=== PATIENT | male | born 1960 | race Caucasian/White ===

== ENCOUNTER 2016-10-11 09:43 | Emergency (ER) | payer OTHER ==
--- NOTE | 2016-10-11 11:51 | DIAGNOSTIC IMAGING REPORT ---
PROCEDURE: US VENOUS - LEFT EXT INDICATION: SWELLING TECHNIQUE: Duplex sonography of the deep venous system in the left lower extremity was performed. Compression and augmentation techniques were used. COMPARISON: Lower extremity ultrasound 12/30/2010 FINDINGS: Each interrogated segment of deep vein from the common femoral vein into the calf veins demonstrates normal compressibility, augmentation and/or color Doppler flow without filling defect. There is soft-tissue edema, consistent with cellulitis. IMPRESSION: 1. No deep venous thrombosis in the left lower extremity.
--- NOTE | 2016-10-11 11:54 | DIAGNOSTIC IMAGING REPORT ---
PROCEDURE: XR ANKLE 3 OR 4 VIEWS - LEFT INDICATION: INFECTION TECHNIQUE: Four views. COMPARISON: None. FINDINGS: Osseous structures and joint spaces are normal. There is soft tissue swelling IMPRESSION: 1. Normal right ankle. Soft tissue swelling.
--- NOTE | 2016-10-11 14:18 | ED CLINICAL REPORT ---
Clinical Report - Physicians/Mid Levels [facility] [address] [place] [address] 10/11/2016 9:45 Patient: ERICA WHITLOCK Time Seen: 10:41. Arrived- By private vehicle. Historian- patient and patient's physician (Dr. Haddad). HISTORY OF PRESENT ILLNESS Chief Complaint: LOWER EXTREMITY PAIN. This started several days ago and is still present and now worse. It was abrupt in onset and has been constant. Severity is described as being moderate. It has become recently worse. Symptoms located in the area of the left foot. The patient has had redness and swelling. Patient notes an injury. Mechanism of injury- he fell while walking. (onset Friday when he stepped on a rock and twisted the ankle). REVIEW OF SYSTEMS No chills, fever, sweats, calf pain or chest pain. No cough, difficulty breathing, pedal edema, palpitations or abdominal pain. No diarrhea, nausea, vomiting or urinary problems. All systems otherwise negative, except as recorded above. PAST HISTORY Medications: Senna Oral (Tablet 8.6 mg) 2 tablets, daily. Labetalol HCl Oral (Tablet 100 mg) 1 tablet, 2x a day. HCTZ 25mg , daily. Furosemide Oral (Tablet 40 mg) 1 tablet, 1 - 2 times daily. Ferrous Sulfate Oral (Tablet 325 (65 Fe) mg) 1 tablet, 2x a day. Escitalopram Oxalate Oral (Tablet 10 mg) 1 tablet, daily. Suboxone Sublingual. B Complex Vitamins Oral. Aspirin Oral (Tablet 81 mg) 1 tablet, daily. Allergies: Latex. Morphine Sulfate. SOCIAL HISTORY Current every day light tobacco smoker (cigarette)- less than 1/2 a pack per day. Alcohol use. Patient is a recovering alcoholic. History of drug use. Is a recovering addict. FAMILY HISTORY Denies family medical history. ADDITIONAL NOTES The nursing notes have been reviewed. PHYSICAL EXAM Vital Signs: 10/11/2016 09:53 BP: 124/57. HR: 69. RR: 20. O2 saturation: 97%. Temp: 98.4 F. Pain level now: 8/10. Have been reviewed. Appearance: Alert. Eyes: Pupils equal, round and reactive to light. ENT: Pharynx normal. Neck: Neck supple. CVS: Normal heart rate and rhythm. Heart sounds normal. Respiratory: No respiratory distress. Breath sounds normal. Abdomen: Soft and nontender. No organomegaly. Back: ROM normal. Skin: Skin warm and dry. Extremities: Swelling, warmth, tenderness and erythema present in the left foot. No fluctuance. LABS, X-RAYS, AND EKG EKG: Rate: 63. Q waves in lead V1 and V2. Changes present when compared to prior EKG. (10 December 2011). The study has been independently viewed by me. Lt Ankle X-ray: Soft tissue swelling. The X-rays were independently viewed by me. Lower Extremity Sonography: Negative exam. Left lower extremity. The exam was performed by a screen making technician. The study was independently viewed by me. Laboratory Tests: CBC w Diff: (CARSON: 10/11/2016 12:00) ( MsgRcvd 10/11/2016 13:54) Final results Test Result Flag Units (Reference) WHITE BLOOD COUNT 7.6 K/uL (4.5-11.5) RED BLOOD COUNT 3.93 L M/uL (4.50-5.90) HEMOGLOBIN 11.8 L gm/dL (13.5-17.5) HEMATOCRIT 36.3 L % (41.0-53.0) MEAN CELL VOLUME 93 fL (80-100) MEAN CORPUSCULAR HGB 30 pg (26-34) MEAN CORPUSCULAR HGB CONC 32 g/dL (31-37) RED CELL DISTRIBUTION WIDTH 15.6 H % (11.6-14.8) PLATELET COUNT 298 K/uL (150-400) NEUTROPHIL % 67.8 % (50-75) EOSINOPHIL % 3.6 % (0-4) BASOPHIL % 0.9 % (0-2) POLY % 66 % (50-75) BAND % 2 % (0-8) LYMPH 18 L % (25-40) MONO 10 % (3-14) EOSINOPHIL % 4 % (0-4) BASOPHIL % 0 % (0-2) METAMYELOCYTE % 0 % (0-1) MYELOCYTE 0 % (0-1) OTHER CELL TYPE 0 POIKILOCYTOSIS 1+ ANISOCYTOSIS 2+ PT with INR: (CARSON: 10/11/2016 12:00) ( [facility] 10/11/2016 12:32) Final results Test Result Flag Units (Reference) INR 1.0 (0.8-1.2) Low Intensity Therapy: INR 1.5-2.0 PT range 18.5-23.1Mod.Intensity Therapy: INR 2.0-3.0 PT range 23.1-31.5High Intensity Therapy: INR 2.5-3.5 PT range 27.4-35.5High Intensity Therapy 2: INR 3.0-4.0 PT range 31.5-39.3 APTT 21 L SECONDS (24-34) BNP: (CARSON: 10/11/2016 12:00) ( [facility] 10/11/2016 13:17) Final results Test Result Flag Units (Reference) B-TYPE NATRIURETIC PEPTIDE 119 H pg/ml (5-100) Lactate, Serum: (CARSON: 10/11/2016 12:54) ( [facility] 10/11/2016 13:30) Final results Test Result Flag Units (Reference) LACTIC ACID 0.5 mmol/L (0.4-2.0) CMP: (CARSON: 10/11/2016 12:00) ( [facility] 10/11/2016 12:48) Final results Test Result Flag Units (Reference) GLUCOSE 109 mg/dL (70-110) BUN 15 mg/dL (7-18) CREATININE 0.7 mg/dL (0.6-1.3) Estimated GFR >60 mL/min Estimated GFR- >60 mL/min Note: Persistent reduction over 3 months in eGFR<60 mL/min/1.73 m2 defines CKD. Patients with eGFR values>=60 mL/min/1.73 m2 may also have CKD if evidence ofpersistent proteinuria. Additional information may be foundat www.kidney.org. SODIUM 136 mmol/L (136-145) POTASSIUM 4.7 mmol/L (3.5-5.1) CHLORIDE 99 mmol/L (98-107) CARBON DIOXIDE 28 mmol/L (21-32) CALCIUM 8.9 mg/dL (8.5-10.1) TOTAL PROTEIN 7.3 g/dL (6.4-8.2) ALBUMIN 3.1 L g/dL (3.3-5.0) BILIRUBIN, TOTAL 0.8 mg/dL (0.0-1.0) ALKALINE PHOSPHATASE 81 U/L (46-116) AST (SGOT) 31 U/L (15-37) ALT (SGPT) 42 U/L (12-78) CPK 259 U/L (24-260) TROPONIN I <0.05 ng/mL (0.00-1.5) TROPONIN REFERENCE RANGE:<0.1 NEGATIVE0.1-1.5 INDETERMINANT>1.5 POSITIVE . PROGRESS AND PROCEDURES Patient/family counseled. Old medical records reviewed. Disposition: Discharged. Condition: stable. CLINICAL IMPRESSION Cellulitis of the left foot. INSTRUCTIONS Use crutches until released. Elevate affected areas above chest level until better. No driving or operating machinery while taking medication. You may walk and bear weight as tolerated. Warnings: Further evaluation is necessary. GENERAL WARNINGS: Return or contact your physician immediately if your condition worsens or changes unexpectedly, if not improving as expected, or if other problems arise. Your Current Medications: CONTINUE TAKING THE FOLLOWING MEDICATIONS: Aspirin Oral : Tablet 81 mg, 1 tablet daily. B Complex Vitamins Oral. Escitalopram Oxalate Oral : Tablet 10 mg, 1 tablet daily. Ferrous Sulfate Oral : Tablet 325 (65 Fe) mg, 1 tablet 2x a day. Furosemide Oral : Tablet 40 mg, 1 tablet 1 - 2 times daily. HCTZ* : 25mg daily. Labetalol HCl Oral : Tablet 100 mg, 1 tablet 2x a day. Senna Oral : Tablet 8.6 mg, 2 tablets daily. Suboxone Sublingual. Prescription Medications: Ultram 50 mg: take 1-2 orally every 6 hours as needed for pain. Dispense ten (10). No refills. Substitution is permissible. Clindamycin 300 mg: take 1 capsule orally every 6 hours for 10 days. No refill. Understanding of the discharge instructions verbalized by patient. Follow-up with: Lázaro Haddad MD, Internal Medicine, , [facility] at [facility], [address] [place] [address] [place], [place], [phone] Follow up Friday in three days. Call for an appointment. (Electronically signed by Kendall Fernandez MD 10/15/2016 21:10)
--- NOTE | 2016-10-11 14:18 | ED ORDER SUMMARY ---
..... Patient: ERICA WHITLOCK OrderSheet [facility] VisitID: [id number] [address] [place] [address] 56y, M Registration Date/Time: 10/11/2016 ORDER SHEET Weight: 71.6 kg (stated) Allergies: Latex, Morphine Sulfate GENERAL ORDERS: US Venous Left Urgent (10:42 10/11/2016 Zoie GUTIERREZ) (Ack 10:45 LTapper) (11:15 JSimbeck R.N.) CBC w Diff Urgent (10:10/11/2016 Zoie GUTIERREZ) (Ack 10:45 LTapper) (12:14 JSimbeck R.N.) CMP Urgent (:10/11/2016 Zoie GUTIERREZ) (Ack 10:45 LTapper) (12:14 JSimbeck R.N.) PT with INR Urgent (10:10/11/2016 Zoie GUTIERREZ) (Ack 10:45 LTapper) (12:14 MARIANAimbeck R.N.) PTT Urgent (10:10/11/2016 Zoie GUTIERREZ) (Ack 10:45 LTapper) (12:14 MARIANAimbeck R.N.) Lactate, Serum Urgent (:10/11/2016 Zoie GUTIERREZ) (Ack 10:45 LTapper) (13:06 EHassan R.N.) Ankle 3 or 4V Left Urgent (11:10/11/2016 Zoie GUTIERREZ) (Ack 11:35 LTapper) (13:06 EHassan R.N.) CPK Urgent (11:10/11/2016 Zoie GUTIERREZ) (Ack 11:35 LTapper) (12:14 MARIANAimbeck R.N.) Troponin-I Urgent (11:10/11/2016 Zoie GUTIERREZ) (Ack 11:35 LTapper) (12:14 Zaydaeck R.N.) BNP Urgent (11:10/11/2016 Zoie GUTIERREZ) (Ack 11:35 LTapper) (12:14 Zaydaeck R.N.) EKG - ER Stat (11:10/11/2016 Zoie GUTIERREZ) (Ack 11:35 LTapper) (12:14 Judith Lloyd) Blood Culture (No) (N/A) Urgent (11:31 10/11/2016 Zoie GUTIERREZ) (Ack 11:35 LTapper) (12:14 Judith Lloyd) Crutches (14:03 10/11/2016 Zoie GUTIERREZ) (Cancelled: Other14:30 Zoie GUTIERREZ) MEDICATION ORDERS: IV FLUIDS: IV Saline Lock (10:42 10/11/2016 Zoie GUTIERREZ) (12:15 Judith R.NShyam) Toradol IV 30 mg (NOW) (13:10 10/11/2016 Garth Lloyd verbal order read back to Zoie GUTIERREZ) (13:15 Garth R.NShyam) ORDER SHEET NOTES: [Electronically signed by Nick Springer R.N. (14:59 10/11/2016)] [Electronically signed by Kendall Fernandez MD (21:10 10/15/2016)] [Electronically locked/signed by Nick Springer R.N. (14:59 10/11/2016)]
--- NOTE | 2016-10-11 14:18 | ED ORDER SUMMARY ---
..... Patient: ERICA WHITLOCK OrderSheet [facility] VisitID: [id number] [address] [place] [address] 56y, M Registration Date/Time: 10/11/2016 ORDER SHEET Weight: 71.6 kg (stated) Allergies: Latex, Morphine Sulfate GENERAL ORDERS: US Venous Left Urgent (10:42 10/11/2016 Zoie GUTIERREZ) (Ack 10:45 LTapper) (11:15 JSimbeck R.N.) CBC w Diff Urgent (10:10/11/2016 Zoie GUTIERREZ) (Ack 10:45 LTapper) (12:14 JSimbeck R.N.) CMP Urgent (:10/11/2016 Zoie GUTIERREZ) (Ack 10:45 LTapper) (12:14 JSimbeck R.N.) PT with INR Urgent (10:10/11/2016 Zoie GUTIERREZ) (Ack 10:45 LTapper) (12:14 MARIANAimbeck R.N.) PTT Urgent (10:10/11/2016 Zoie GUTIERREZ) (Ack 10:45 LTapper) (12:14 MARIANAimbeck R.N.) Lactate, Serum Urgent (:10/11/2016 Zoie GUTIERREZ) (Ack 10:45 LTapper) (13:06 EHassan R.N.) Ankle 3 or 4V Left Urgent (11:10/11/2016 Zoie GUTIERREZ) (Ack 11:35 LTapper) (13:06 EHassan R.N.) CPK Urgent (11:10/11/2016 Zoie GUTIERREZ) (Ack 11:35 LTapper) (12:14 MARIANAimbeck R.N.) Troponin-I Urgent (11:10/11/2016 Zoie GUTIERREZ) (Ack 11:35 LTapper) (12:14 Zaydaeck R.N.) BNP Urgent (11:10/11/2016 Zoie GUTIERREZ) (Ack 11:35 LTapper) (12:14 Zaydaeck R.N.) EKG - ER Stat (11:10/11/2016 Zoie GUTIERREZ) (Ack 11:35 LTapper) (12:14 Judith Lloyd) Blood Culture (No) (N/A) Urgent (11:31 10/11/2016 Zoie GUTIERREZ) (Ack 11:35 LTapper) (12:14 Judith Lloyd) Crutches (14:03 10/11/2016 Zoie GUTIERREZ) (Cancelled: Other14:30 Zoie GUTIERREZ) MEDICATION ORDERS: IV FLUIDS: IV Saline Lock (10:42 10/11/2016 Zoie GUTIERREZ) (12:15 Judith R.NShyam) Toradol IV 30 mg (NOW) (13:10 10/11/2016 Garth Lloyd verbal order read back to Zoie GUTIERREZ) (13:15 Garth R.NShyam) ORDER SHEET NOTES: [Electronically signed by Nick Springer R.N. (14:59 10/11/2016)] [Electronically signed by Kendall Fernandez MD (21:10 10/15/2016)] [Electronically locked/signed by Nick Springer R.N. (14:59 10/11/2016)]
--- NOTE | 2016-10-11 14:18 | ED NURSING NOTES ---
Clinical Report - Nurses [facility] [address] [place] [address] 10/11/2016 9:45 Patient: ERICA WHITLOCK TRIAGE Triage time 09:53. Acuity: LEVEL 3. Chief Complaint: LEFT LOWER EXTREMITY SWELLING and REDNESS. Location of symptoms- (onset Friday when he stepped on a rock and twisted the ankle.). 10:03 10/11/16. TIEN COMA SCORE: [place] Coma Scale: 15- eyes open spontaneously (4); best verbal response- oriented x 4 (5); best motor response- obeys commands (6). --10:09 Nick Springer R.N. 09:53 10/11/16. BP: 124/57. HR: 69. RR: 20. O2 saturation: 97% on room air. Temp: 98.4 F (oral). Pain level now: 04/03. --10:09 Nick Springer R.N. Weight: 71.6 kg stated. Height/Length: 67 inches Per Patient. BMI: 24.7. --10:02 Nick Springer R.N. Medications Aspirin Oral (Tablet 81 mg) 1 tablet, daily. --09:56 Nick Springer R.N. B Complex Vitamins Oral. --09:56 Nick Springer R.N. Suboxone Sublingual. --09:56 Nick Springer R.N. Escitalopram Oxalate Oral (Tablet 10 mg) 1 tablet, daily. --09:57 Nick Springer R.N. Ferrous Sulfate Oral (Tablet 325 (65 Fe) mg) 1 tablet, 2x a day. --09:58 Nick Springer R.N. Furosemide Oral (Tablet 40 mg) 1 tablet, 1 - 2 times daily. --09:58 Nick Springer R.N. HCTZ 25mg , daily. --09:59 Nick Springer R.N. Labetalol HCl Oral (Tablet 100 mg) 1 tablet, 2x a day. --10:00 Nick Springer R.N. Senna Oral (Tablet 8.6 mg) 2 tablets, daily. --10:00 Nick Springer R.N. Allergies Latex. Morphine Sulfate. --09:54 Nick Springer R.N. History Arrived by private vehicle. Historian: patient. 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 SOCIAL HX: Light tobacco smoker (cigarette)- less than 1/2 a pack per day. Occasional alcohol use. History of drug use. Is a recovering addict. ABUSE ASSESSMENT: No report of abuse. --10:09 Nick Springer R.N. PROBLEMS: Chronic hepatitis C. Drug Addiction. Incisional abscess. Near Syncope. Atypical Chest Pain. Cervical disc herniation. Back Pain. Hypertension. Anemia. Heart Disease. Laceration. Aortic Aneurysm. Tetanus Status. Immunizations. --10:02 Nick Springer R.N. ADDITIONAL SURGERIES: Coartation/aneurysm with multiple endograft repairs. Hernia Repair. --10:03 Nick Springer R.N. PHYSICAL ASSESSMENT late entry -10:02. To room via wheelchair. GENERAL / NEURO / PSYCH: Appears in pain. He has had weakness. CVS: Capillary refill is not greater than 2 seconds. EXTREMITIES: Limited ROM present. Left leg. Limited weight bearing secondary to pain (Erythema, pain, swelling from the toes to the mid mayo. Marked the upper limits of the erythema on the anterior leg.). SKIN: No extremity wound. --11:14 Nick Springer R.N. NURSING PROGRESS NOTES late entry -10:02. Reassurance given. Two patient identifiers checked. Call light placed in reach. Bed placed in lowest position. Brakes of bed on. Patient ready for evaluation- chart flagged. --11:14 Nick Springer R.N. 11:00. ( US at the bedside). --11:16 Nick Sprigner R.N. 12:00 10/11/2016 Site #1 started via IV in the right forearm with an 22g angiocath, with aseptic technique and good blood return; two attempts. Blood drawn: rainbow set and cultures x1. Labeled in the presence of the patient and sent to the lab. --12:15 Nick Springer R.N. 12:30 10/11/16. BP: 113/66. HR: 66. RR: 16. O2 saturation: 95% on room air. Pain level now: 02/01. --12:42 Nick Springer R.N. 13:15 10/11/2016 Toradol IVP 30 mg given over 30 second(s) via site #1. Allergies verified and confirmed 5 rights. IV patency established. IV site checked: no pain, redness, or swelling. IV flushed thoroughly pre- and post-medication administration. --13:15 Vi Schofield R.N. Left leg and left ankle elevated. Reassurance given. The patient is calm. Overall patient status is the same- he states feels the same. GENERAL / NEURO / PSYCH: The patient reports pain that is located in the left ankle and foot that is severe. Two patient identifiers checked. Call light placed in reach. Bed placed in lowest position. Brakes of bed on. --13:16 Vi Schofield R.N. 13:24 10/11/16. HR: 69. RR: 15. O2 saturation: 98% on room air. Pain level now: 05/04. --13:25 Vi Schofield R.N. DISPOSITION / DISCHARGE 14:30 10/11/2016 Site #1 removed upon discharge. Bandage applied. --14:43 Nick Springer R.N. 14:43 10/11/16. Departure time: 1435. Condition at departure: improved and stable. No learning barriers present. Discharge instructions provided and reviewed with the patient and spouse. Reviewed warnings. Reviewed medication(s). Reviewed referrals. Patient and spouse verbalized understanding. Written instructions provided in Latvian. The patient was discharged by the physician. He was discharged home and accompanied by spouse. He left the Emergency Department in a wheelchair and via private vehicle. Spouse driving. --14:44 Nick Springer R.N. 14:30 10/11/16. BP: 144/66. HR: 72. RR: 16. O2 saturation: 98% on room air. Temp: 98.2 F (oral). Pain level now: 12/02. --14:44 Nick Springer R.N. Locked/Released at 10/11/2016 14:59 by Nick Springer R.N.
--- NOTE | 2016-10-11 14:18 | ED CLINICAL REPORT ---
Clinical Report - Physicians/Mid Levels [facility] [address] [place] [address] 10/11/2016 9:45 Patient: ERICA WHITLOCK Time Seen: 10:41. Arrived- By private vehicle. Historian- patient and patient's physician (Dr. Haddad). HISTORY OF PRESENT ILLNESS Chief Complaint: LOWER EXTREMITY PAIN. This started several days ago and is still present and now worse. It was abrupt in onset and has been constant. Severity is described as being moderate. It has become recently worse. Symptoms located in the area of the left foot. The patient has had redness and swelling. Patient notes an injury. Mechanism of injury- he fell while walking. (onset Friday when he stepped on a rock and twisted the ankle). REVIEW OF SYSTEMS No chills, fever, sweats, calf pain or chest pain. No cough, difficulty breathing, pedal edema, palpitations or abdominal pain. No diarrhea, nausea, vomiting or urinary problems. All systems otherwise negative, except as recorded above. PAST HISTORY Medications: Senna Oral (Tablet 8.6 mg) 2 tablets, daily. Labetalol HCl Oral (Tablet 100 mg) 1 tablet, 2x a day. HCTZ 25mg , daily. Furosemide Oral (Tablet 40 mg) 1 tablet, 1 - 2 times daily. Ferrous Sulfate Oral (Tablet 325 (65 Fe) mg) 1 tablet, 2x a day. Escitalopram Oxalate Oral (Tablet 10 mg) 1 tablet, daily. Suboxone Sublingual. B Complex Vitamins Oral. Aspirin Oral (Tablet 81 mg) 1 tablet, daily. Allergies: Latex. Morphine Sulfate. SOCIAL HISTORY Current every day light tobacco smoker (cigarette)- less than 1/2 a pack per day. Alcohol use. Patient is a recovering alcoholic. History of drug use. Is a recovering addict. FAMILY HISTORY Denies family medical history. ADDITIONAL NOTES The nursing notes have been reviewed. PHYSICAL EXAM Vital Signs: 10/11/2016 09:53 BP: 124/57. HR: 69. RR: 20. O2 saturation: 97%. Temp: 98.4 F. Pain level now: 8/10. Have been reviewed. Appearance: Alert. Eyes: Pupils equal, round and reactive to light. ENT: Pharynx normal. Neck: Neck supple. CVS: Normal heart rate and rhythm. Heart sounds normal. Respiratory: No respiratory distress. Breath sounds normal. Abdomen: Soft and nontender. No organomegaly. Back: ROM normal. Skin: Skin warm and dry. Extremities: Swelling, warmth, tenderness and erythema present in the left foot. No fluctuance. LABS, X-RAYS, AND EKG EKG: Rate: 63. Q waves in lead V1 and V2. Changes present when compared to prior EKG. (10 December 2011). The study has been independently viewed by me. Lt Ankle X-ray: Soft tissue swelling. The X-rays were independently viewed by me. Lower Extremity Sonography: Negative exam. Left lower extremity. The exam was performed by a technical maintenance technician. The study was independently viewed by me. Laboratory Tests: CBC w Diff: (CARSON: 10/11/2016 12:00) ( MsgRcvd 10/11/2016 13:54) Final results Test Result Flag Units (Reference) WHITE BLOOD COUNT 7.6 K/uL (4.5-11.5) RED BLOOD COUNT 3.93 L M/uL (4.50-5.90) HEMOGLOBIN 11.8 L gm/dL (13.5-17.5) HEMATOCRIT 36.3 L % (41.0-53.0) MEAN CELL VOLUME 93 fL (80-100) MEAN CORPUSCULAR HGB 30 pg (26-34) MEAN CORPUSCULAR HGB CONC 32 g/dL (31-37) RED CELL DISTRIBUTION WIDTH 15.6 H % (11.6-14.8) PLATELET COUNT 298 K/uL (150-400) NEUTROPHIL % 67.8 % (50-75) EOSINOPHIL % 3.6 % (0-4) BASOPHIL % 0.9 % (0-2) POLY % 66 % (50-75) BAND % 2 % (0-8) LYMPH 18 L % (25-40) MONO 10 % (3-14) EOSINOPHIL % 4 % (0-4) BASOPHIL % 0 % (0-2) METAMYELOCYTE % 0 % (0-1) MYELOCYTE 0 % (0-1) OTHER CELL TYPE 0 POIKILOCYTOSIS 1+ ANISOCYTOSIS 2+ PT with INR: (CARSON: 10/11/2016 12:00) ( [facility] 10/11/2016 12:32) Final results Test Result Flag Units (Reference) INR 1.0 (0.8-1.2) Low Intensity Therapy: INR 1.5-2.0 PT range 18.5-23.1Mod.Intensity Therapy: INR 2.0-3.0 PT range 23.1-31.5High Intensity Therapy: INR 2.5-3.5 PT range 27.4-35.5High Intensity Therapy 2: INR 3.0-4.0 PT range 31.5-39.3 APTT 21 L SECONDS (24-34) BNP: (CARSON: 10/11/2016 12:00) ( [facility] 10/11/2016 13:17) Final results Test Result Flag Units (Reference) B-TYPE NATRIURETIC PEPTIDE 119 H pg/ml (5-100) Lactate, Serum: (CARSON: 10/11/2016 12:54) ( [facility] 10/11/2016 13:30) Final results Test Result Flag Units (Reference) LACTIC ACID 0.5 mmol/L (0.4-2.0) CMP: (CARSON: 10/11/2016 12:00) ( [facility] 10/11/2016 12:48) Final results Test Result Flag Units (Reference) GLUCOSE 109 mg/dL (70-110) BUN 15 mg/dL (7-18) CREATININE 0.7 mg/dL (0.6-1.3) Estimated GFR >60 mL/min Estimated GFR- >60 mL/min Note: Persistent reduction over 3 months in eGFR<60 mL/min/1.73 m2 defines CKD. Patients with eGFR values>=60 mL/min/1.73 m2 may also have CKD if evidence ofpersistent proteinuria. Additional information may be foundat www.kidney.org. SODIUM 136 mmol/L (136-145) POTASSIUM 4.7 mmol/L (3.5-5.1) CHLORIDE 99 mmol/L (98-107) CARBON DIOXIDE 28 mmol/L (21-32) CALCIUM 8.9 mg/dL (8.5-10.1) TOTAL PROTEIN 7.3 g/dL (6.4-8.2) ALBUMIN 3.1 L g/dL (3.3-5.0) BILIRUBIN, TOTAL 0.8 mg/dL (0.0-1.0) ALKALINE PHOSPHATASE 81 U/L (46-116) AST (SGOT) 31 U/L (15-37) ALT (SGPT) 42 U/L (12-78) CPK 259 U/L (24-260) TROPONIN I <0.05 ng/mL (0.00-1.5) TROPONIN REFERENCE RANGE:<0.1 NEGATIVE0.1-1.5 INDETERMINANT>1.5 POSITIVE . PROGRESS AND PROCEDURES Patient/family counseled. Old medical records reviewed. Disposition: Discharged. Condition: stable. CLINICAL IMPRESSION Cellulitis of the left foot. INSTRUCTIONS Use crutches until released. Elevate affected areas above chest level until better. No driving or operating machinery while taking medication. You may walk and bear weight as tolerated. Warnings: Further evaluation is necessary. GENERAL WARNINGS: Return or contact your physician immediately if your condition worsens or changes unexpectedly, if not improving as expected, or if other problems arise. Your Current Medications: CONTINUE TAKING THE FOLLOWING MEDICATIONS: Aspirin Oral : Tablet 81 mg, 1 tablet daily. B Complex Vitamins Oral. Escitalopram Oxalate Oral : Tablet 10 mg, 1 tablet daily. Ferrous Sulfate Oral : Tablet 325 (65 Fe) mg, 1 tablet 2x a day. Furosemide Oral : Tablet 40 mg, 1 tablet 1 - 2 times daily. HCTZ* : 25mg daily. Labetalol HCl Oral : Tablet 100 mg, 1 tablet 2x a day. Senna Oral : Tablet 8.6 mg, 2 tablets daily. Suboxone Sublingual. Prescription Medications: Ultram 50 mg: take 1-2 orally every 6 hours as needed for pain. Dispense ten (10). No refills. Substitution is permissible. Clindamycin 300 mg: take 1 capsule orally every 6 hours for 10 days. No refill. Understanding of the discharge instructions verbalized by patient. Follow-up with: Lázaro Haddad MD, Internal Medicine, , [facility], [address] [place] [address] [place], [place], [phone] Follow up Friday in three days. Call for an appointment. (Electronically signed by Kendall Fernandez MD 10/15/2016 21:10)
--- NOTE | 2016-10-15 21:10 | ED DISCHARGE INSTRUCTIONS ---
Patient: ERICA WHITLOCK General Instructions [facility] VisitID: [id number] [address] [place] [id number] 56y, M Registration Date/Time: 10/11/2016 Cellulitis of the left foot. INSTRUCTIONS Use crutches until released. Elevate affected areas above chest level until better. No driving or operating machinery while taking medication. You may walk and bear weight as tolerated. Warnings: Further evaluation is necessary. GENERAL WARNINGS: Return or contact your physician immediately if your condition worsens or changes unexpectedly, if not improving as expected, or if other problems arise. Your Current Medications: CONTINUE TAKING THE FOLLOWING MEDICATIONS: Aspirin Oral : Tablet 81 mg, 1 tablet daily. B Complex Vitamins Oral. Escitalopram Oxalate Oral : Tablet 10 mg, 1 tablet daily. Ferrous Sulfate Oral : Tablet 325 (65 Fe) mg, 1 tablet 2x a day. Furosemide Oral : Tablet 40 mg, 1 tablet 1 - 2 times daily. HCTZ* : 25mg daily. Labetalol HCl Oral : Tablet 100 mg, 1 tablet 2x a day. Senna Oral : Tablet 8.6 mg, 2 tablets daily. Suboxone Sublingual. Prescription Medications: Ultram 50 mg: take 1-2 orally every 6 hours as needed for pain. Dispense ten (10). No refills. Substitution is permissible. Clindamycin 300 mg: take 1 capsule orally every 6 hours for 10 days. No refill. Understanding of the discharge instructions verbalized by patient. Follow-up with: Lázaro Haddad MD, Internal Medicine, , [facility], [address] [place] [address] Follow up Friday in three days. Call for an appointment. ADDITIONAL INFORMATION Cellulitis You have an infection of the skin known as cellulitis. This usually starts with a scrape, cut, insect bite, blister or other opening in the skin which becomes infected. This is a serious condition. It must be watched closely to be sure the infection is not spreading. With antibiotic treatment, the size of the red area will gradually shrink in size until the skin returns to normal. This will take 7-10 days. The red area should never increase in size once the antibiotic medicine has been started. Occasionally, an infection will be resistant to one antibiotic and another one will have to be used. Home Care: 1) Limit the use of the affected part, since excess movement can cause the infection to spread. 2) If the infection is on your leg, walk as little as possible during the first few days of the treatment. Keep your leg elevated while sitting. This will reduce swelling. 3) Take all of the antibiotic medicine exactly as directed until it is gone. Be careful not to miss any doses, especially during the first seven days. Follow Up with your doctor or this facility as directed. Check the infected area daily for the warning signs listed below. Get Prompt Medical Attention if any of the following occur: -- Spreading area of redness -- Increasing swelling or pain -- Appearance of pus or drainage -- Fever over 100.4 F (38.0 C) oral, or over 101.4 F (38.6 C) rectal, after two days on antibiotics Crutch Walking Crutch Adjustment Make sure the crutches you use are adjusted to fit you. When you stand, there should be room to fit 2-3 fingers between the top of the crutch and your armpit. Your elbow should be slightly bent when holding the hand antisqueak chalker. Crutch Walking: Place the crutches forward 12" in front of and 6" to the side of your feet. Lean your weight forward as you push down on the handgrips. Your weight should be on your hands and yourstrong leg, not your armpits . Let your body swing through, landing on the strong leg. Advance the crutches forward again. The crutch and the injured leg should move together. Going Up Steps: ("Up with the good") With both crutches on the same step as your feet, push down on the handgrips. Balancing with very light pressure on the weak leg, let your hands support your weight as you raise your strong leg onto the next higher step. Transfer all your weight to your strong leg (still bent) as you move the crutches up to the next step alongside the strong leg. With your weight evenly balanced on the two crutches and your strong leg, straighten your strong knee as you raise the weak leg up to the next step. Going Down Steps: ("Down with the bad") With both crutches on the same step as your feet, push down on the handgrips. With your weight evenly balanced on the two crutches and your strong leg, bend your strong knee as you lower the weak leg down to the next step. Let your strong leg support you (still bent) as you move the crutches down alongside the weak leg. Transfer your weight to your hands, balancing with very light pressure on the weak leg as you lower your strong leg alongside your weak leg. Tramadol Hydrochloride Oral tablet What is this medicine? TRAMADOL (TRA ma dole) is a pain reliever. It is used to treat moderate to severe pain in adults. How should I use this medicine? Take this medicine by mouth with a full glass of water. Follow the directions on the prescription label. If the medicine upsets your stomach, take it with food or milk. Do not take more medicine than you are told to take. Talk to your chief business officer regarding the use of this medicine in children. Special care may be needed. What side effects may I notice from receiving this medicine? Side effects that you should report to your doctor or health progressive care nurse as soon as possible: allergic reactions like skin rash, itching or hives, swelling of the face, lips, or tongue breathing difficulties, wheezing confusion itching light headedness or fainting spells redness, blistering, peeling or loosening of the skin, including inside the mouth seizures Side effects that usually do not require medical attention (report to your doctor or health progressive care nurse if they continue or are bothersome): constipation dizziness drowsiness headache nausea, vomiting What may interact with this medicine? Do not take this medicine with any of the following medications: MAOIs like Carbex, Eldepryl, Marplan, Nardil, and Parnate This medicine may also interact with the following medications: alcohol or medicines that contain alcohol antihistamines benzodiazepines bupropion carbamazepine or oxcarbazepine clozapine cyclobenzaprine digoxin furazolidone linezolid medicines for depression, anxiety, or psychotic disturbances medicines for migraine headache like almotriptan, eletriptan, frovatriptan, naratriptan, rizatriptan, sumatriptan, zolmitriptan medicines for pain like pentazocine, buprenorphine, butorphanol, meperidine, nalbuphine, and propoxyphene medicines for sleep muscle relaxants naltrexone phenobarbital phenothiazines like perphenazine, thioridazine, chlorpromazine, mesoridazine, fluphenazine, prochlorperazine, promazine, and trifluoperazine procarbazine warfarin What if I miss a dose? If you miss a dose, take it as soon as you can. If it is almost time for your next dose, take only that dose. Do not take double or extra doses. Where should I keep my medicine? Keep out of the reach of children. Store at room temperature between 15 and 30 degrees C (59 and 86 degrees F). Keep container tightly closed. Throw away any unused medicine after the expiration date. What should I tell my health care provider before I take this medicine? They need to know if you have any of these conditions: brain tumor depression drug abuse or addiction head injury if you frequently drink alcohol containing drinks kidney disease or trouble passing urine liver disease lung disease, asthma, or breathing problems seizures or epilepsy suicidal thoughts, plans, or attempt; a previous suicide attempt by you or a family member an unusual or allergic reaction to tramadol, codeine, other medicines, foods, dyes, or preservatives or trying to get breast-feeding What should I watch for while using this medicine? Tell your doctor or health progressive care nurse if your pain does not go away, if it gets worse, or if you have new or a different type of pain. You may develop tolerance to the medicine. Tolerance means that you will need a higher dose of the medicine for pain relief. Tolerance is normal and is expected if you take this medicine for a long time. Do not suddenly stop taking your medicine because you may develop a severe reaction. Your body becomes used to the medicine. This does NOT mean you are addicted. Addiction is a behavior related to getting and using a drug for a non-medical reason. If you have pain, you have a medical reason to take pain medicine. Your doctor will tell you how much medicine to take. If your doctor wants you to stop the medicine, the dose will be slowly lowered over time to avoid any side effects. You may get drowsy or dizzy. Do not drive, use machinery, or do anything that needs mental alertness until you know how this medicine affects you. Do not stand or sit up quickly, especially if you are an older patient. This reduces the risk of dizzy or fainting spells. Alcohol can increase or decrease the effects of this medicine. Avoid alcoholic drinks. You may have constipation. Try to have a bowel movement at least every 2 to 3 days. If you do not have a bowel movement for 3 days, call your doctor or health progressive care nurse. Your mouth may get dry. Chewing sugarless gum or sucking hard candy, and drinking plenty of water may help. Contact your doctor if the problem does not go away or is severe. Clindamycin Hydrochloride Oral capsule What is this medicine? CLINDAMYCIN (EDILSON Chacon) is a lincosamide antibiotic. It is used to treat certain kinds of bacterial infections. It will not work for colds, flu, or other viral infections. How should I use this medicine? Take this medicine by mouth with a full glass of water. Follow the directions on the prescription label. You can take this medicine with food or on an empty stomach. If the medicine upsets your stomach, take it with food. Take your medicine at regular intervals. Do not take your medicine more often than directed. Take all of your medicine as directed even if you think your are better. Do not skip doses or stop your medicine early. Talk to your chief business officer regarding the use of this medicine in children. Special care may be needed. What side effects may I notice from receiving this medicine? Side effects that you should report to your doctor or health progressive care nurse as soon as possible: allergic reactions like skin rash, itching or hives, swelling of the face, lips, or tongue dark urine pain on swallowing redness, blistering, peeling or loosening of the skin, including inside the mouth unusual bleeding or bruising unusually weak or tired yellowing of eyes or skin Side effects that usually do not require medical attention (report to your doctor or health progressive care nurse if they continue or are bothersome): diarrhea itching in the rectal or genital area joint pain nausea, vomiting stomach pain What may interact with this medicine? chloramphenicol erythromycin kaolin products What if I miss a dose? If you miss a dose, take it as soon as you can. If it is almost time for your next dose, take only that dose. Do not take double or extra doses. Where should I keep my medicine? Keep out of the reach of children. Store at room temperature between 20 and 25 degrees C (68 and 77 degrees F). Throw away any unused medicine after the expiration date. What should I tell my health care provider before I take this medicine? They need to know if you have any of these conditions: kidney disease liver disease stomach problems like colitis an unusual or allergic reaction to clindamycin, lincomycin, or other medicines, foods, dyes like tartrazine or preservatives or trying to get breast-feeding What should I watch for while using this medicine? Tell your doctor or healthcare professional if your symptoms do not start to get better or if they get worse. Do not treat diarrhea with over the counter products. Contact your doctor if you have diarrhea that lasts more than 2 days or if it is severe and watery. You have been given the following additional information: Cellulitis Crutch Walking Tramadol Hydrochloride Oral tablet Clindamycin Hydrochloride Oral capsule No driving or operating machinery while taking medication. You may walk and bear weight as tolerated. (Electronically signed by Kendall Fernandez MD 10/15/2016 21:10)
--- NOTE | 2016-10-15 21:10 | ED MED RECONCILIATION SUMMARY ---
Patient: ERICA WHITLOCK Medication Reconciliation Report [facility] VisitID: [id number] [address] [place] [address] 56y, M Registration Date/Time: 10/11/2016 Weight: 71.6 kg Height/Length: 67 in. BMI: 24.7 ALLERGIES: Latex, Morphine Sulfate The patient's Home Medications are listed below: CONTINUE TAKING THE FOLLOWING MEDICATIONS: Aspirin Oral (81 mg) 1 tablet, daily B Complex Vitamins Oral Escitalopram Oxalate Oral (10 mg) 1 tablet, daily Ferrous Sulfate Oral (325 (65 Fe) mg) 1 tablet, 2x a day Furosemide Oral (40 mg) 1 tablet, 1 - 2 times daily HCTZ 25mg , daily Labetalol HCl Oral (100 mg) 1 tablet, 2x a day Senna Oral (8.6 mg) 2 tablets, daily Suboxone Sublingual The source(s) of the original Home Medication information: Not obtained. The following Medications were given to the patient in the Emergency Department: Toradol [IVP] IVP 30 mg, administered: 10/11/2016 1:15:00 PM The following Medications were prescribed to the patient: Ultram 50 mg: take 1-2 orally every 6 hours as needed for pain. Dispense ten (10). No refills. Substitution is permissible. -- Kendall Fernandez MD Clindamycin 300 mg: take 1 capsule orally every 6 hours for 10 days. No refill. -- Kendall Fernandez MD
--- NOTE | 2016-10-15 21:10 | ED MAR SUMMARY ---
..... Medication Administration Record [facility] [address] [place] [address] Patient: ERICA WHITLOCK Visit ID: [id number] 56y, M Weight: 71.6 kg Height/Length: 67 in BMI: 24.7 ALLERGIES: Latex, Morphine Sulfate Given 13:15 10/11/2016 Vi Schofield R.N. Medication Administered: TORADOL [IVP], Dose: 30 mg IVP over 30 second(s), Site: #1 right forearm. Medication Ordered: Toradol IV 30 mg (NOW).
--- NOTE | 2016-10-15 21:10 | ED MED RECONCILIATION SUMMARY ---
Patient: ERICA WHITLOCK Medication Reconciliation Report [facility] VisitID: [id number] [address] [place] [address] 56y, M Registration Date/Time: 10/11/2016 Weight: 71.6 kg Height/Length: 67 in. BMI: 24.7 ALLERGIES: Latex, Morphine Sulfate The patient's Home Medications are listed below: CONTINUE TAKING THE FOLLOWING MEDICATIONS: Aspirin Oral (81 mg) 1 tablet, daily B Complex Vitamins Oral Escitalopram Oxalate Oral (10 mg) 1 tablet, daily Ferrous Sulfate Oral (325 (65 Fe) mg) 1 tablet, 2x a day Furosemide Oral (40 mg) 1 tablet, 1 - 2 times daily HCTZ 25mg , daily Labetalol HCl Oral (100 mg) 1 tablet, 2x a day Senna Oral (8.6 mg) 2 tablets, daily Suboxone Sublingual The source(s) of the original Home Medication information: Not obtained. The following Medications were given to the patient in the Emergency Department: Toradol [IVP] IVP 30 mg, administered: 10/11/2016 1:15:00 PM The following Medications were prescribed to the patient: Ultram 50 mg: take 1-2 orally every 6 hours as needed for pain. Dispense ten (10). No refills. Substitution is permissible. -- Kendall Fernandez MD Clindamycin 300 mg: take 1 capsule orally every 6 hours for 10 days. No refill. -- Kendall Fernandez MD
--- NOTE | 2016-10-15 21:10 | ED MAR SUMMARY ---
..... Medication Administration Record [facility] [address] [place] [address] Patient: ERICA WHITLOCK Visit ID: [id number] 56y, M Weight: 71.6 kg Height/Length: 67 in BMI: 24.7 ALLERGIES: Latex, Morphine Sulfate Given 13:15 10/11/2016 Vi Schofield R.N. Medication Administered: TORADOL [IVP], Dose: 30 mg IVP over 30 second(s), Site: #1 right forearm. Medication Ordered: Toradol IV 30 mg (NOW).
--- NOTE | 2016-10-15 21:10 | ED DISCHARGE INSTRUCTIONS ---
Patient: ERICA WHITLOCK General Instructions [facility] VisitID: [id number] [address] [id number] 56y, M Registration Date/Time: 10/11/2016 Cellulitis of the left foot. INSTRUCTIONS Use crutches until released. Elevate affected areas above chest level until better. No driving or operating machinery while taking medication. You may walk and bear weight as tolerated. Warnings: Further evaluation is necessary. GENERAL WARNINGS: Return or contact your physician immediately if your condition worsens or changes unexpectedly, if not improving as expected, or if other problems arise. Your Current Medications: CONTINUE TAKING THE FOLLOWING MEDICATIONS: Aspirin Oral : Tablet 81 mg, 1 tablet daily. B Complex Vitamins Oral. Escitalopram Oxalate Oral : Tablet 10 mg, 1 tablet daily. Ferrous Sulfate Oral : Tablet 325 (65 Fe) mg, 1 tablet 2x a day. Furosemide Oral : Tablet 40 mg, 1 tablet 1 - 2 times daily. HCTZ* : 25mg daily. Labetalol HCl Oral : Tablet 100 mg, 1 tablet 2x a day. Senna Oral : Tablet 8.6 mg, 2 tablets daily. Suboxone Sublingual. Prescription Medications: Ultram 50 mg: take 1-2 orally every 6 hours as needed for pain. Dispense ten (10). No refills. Substitution is permissible. Clindamycin 300 mg: take 1 capsule orally every 6 hours for 10 days. No refill. Understanding of the discharge instructions verbalized by patient. Follow-up with: Lázaro Haddad MD, Internal Medicine, , [facility], [address] [place] [address] Follow up Friday in three days. Call for an appointment. ADDITIONAL INFORMATION Cellulitis You have an infection of the skin known as cellulitis. This usually starts with a scrape, cut, insect bite, blister or other opening in the skin which becomes infected. This is a serious condition. It must be watched closely to be sure the infection is not spreading. With antibiotic treatment, the size of the red area will gradually shrink in size until the skin returns to normal. This will take 7-10 days. The red area should never increase in size once the antibiotic medicine has been started. Occasionally, an infection will be resistant to one antibiotic and another one will have to be used. Home Care: 1) Limit the use of the affected part, since excess movement can cause the infection to spread. 2) If the infection is on your leg, walk as little as possible during the first few days of the treatment. Keep your leg elevated while sitting. This will reduce swelling. 3) Take all of the antibiotic medicine exactly as directed until it is gone. Be careful not to miss any doses, especially during the first seven days. Follow Up with your doctor or this facility as directed. Check the infected area daily for the warning signs listed below. Get Prompt Medical Attention if any of the following occur: -- Spreading area of redness -- Increasing swelling or pain -- Appearance of pus or drainage -- Fever over 100.4 F (38.0 C) oral, or over 101.4 F (38.6 C) rectal, after two days on antibiotics Crutch Walking Crutch Adjustment Make sure the crutches you use are adjusted to fit you. When you stand, there should be room to fit 2-3 fingers between the top of the crutch and your armpit. Your elbow should be slightly bent when holding the hand select banker. Crutch Walking: Place the crutches forward 12" in front of and 6" to the side of your feet. Lean your weight forward as you push down on the handgrips. Your weight should be on your hands and yourstrong leg, not your armpits . Let your body swing through, landing on the strong leg. Advance the crutches forward again. The crutch and the injured leg should move together. Going Up Steps: ("Up with the good") With both crutches on the same step as your feet, push down on the handgrips. Balancing with very light pressure on the weak leg, let your hands support your weight as you raise your strong leg onto the next higher step. Transfer all your weight to your strong leg (still bent) as you move the crutches up to the next step alongside the strong leg. With your weight evenly balanced on the two crutches and your strong leg, straighten your strong knee as you raise the weak leg up to the next step. Going Down Steps: ("Down with the bad") With both crutches on the same step as your feet, push down on the handgrips. With your weight evenly balanced on the two crutches and your strong leg, bend your strong knee as you lower the weak leg down to the next step. Let your strong leg support you (still bent) as you move the crutches down alongside the weak leg. Transfer your weight to your hands, balancing with very light pressure on the weak leg as you lower your strong leg alongside your weak leg. Tramadol Hydrochloride Oral tablet What is this medicine? TRAMADOL (TRA ma dole) is a pain reliever. It is used to treat moderate to severe pain in adults. How should I use this medicine? Take this medicine by mouth with a full glass of water. Follow the directions on the prescription label. If the medicine upsets your stomach, take it with food or milk. Do not take more medicine than you are told to take. Talk to your timers inspector regarding the use of this medicine in children. Special care may be needed. What side effects may I notice from receiving this medicine? Side effects that you should report to your doctor or health pediatric critical care nurse as soon as possible: allergic reactions like skin rash, itching or hives, swelling of the face, lips, or tongue breathing difficulties, wheezing confusion itching light headedness or fainting spells redness, blistering, peeling or loosening of the skin, including inside the mouth seizures Side effects that usually do not require medical attention (report to your doctor or health pediatric critical care nurse if they continue or are bothersome): constipation dizziness drowsiness headache nausea, vomiting What may interact with this medicine? Do not take this medicine with any of the following medications: MAOIs like Carbex, Eldepryl, Marplan, Nardil, and Parnate This medicine may also interact with the following medications: alcohol or medicines that contain alcohol antihistamines benzodiazepines bupropion carbamazepine or oxcarbazepine clozapine cyclobenzaprine digoxin furazolidone linezolid medicines for depression, anxiety, or psychotic disturbances medicines for migraine headache like almotriptan, eletriptan, frovatriptan, naratriptan, rizatriptan, sumatriptan, zolmitriptan medicines for pain like pentazocine, buprenorphine, butorphanol, meperidine, nalbuphine, and propoxyphene medicines for sleep muscle relaxants naltrexone phenobarbital phenothiazines like perphenazine, thioridazine, chlorpromazine, mesoridazine, fluphenazine, prochlorperazine, promazine, and trifluoperazine procarbazine warfarin What if I miss a dose? If you miss a dose, take it as soon as you can. If it is almost time for your next dose, take only that dose. Do not take double or extra doses. Where should I keep my medicine? Keep out of the reach of children. Store at room temperature between 15 and 30 degrees C (59 and 86 degrees F). Keep container tightly closed. Throw away any unused medicine after the expiration date. What should I tell my health care provider before I take this medicine? They need to know if you have any of these conditions: brain tumor depression drug abuse or addiction head injury if you frequently drink alcohol containing drinks kidney disease or trouble passing urine liver disease lung disease, asthma, or breathing problems seizures or epilepsy suicidal thoughts, plans, or attempt; a previous suicide attempt by you or a family member an unusual or allergic reaction to tramadol, codeine, other medicines, foods, dyes, or preservatives or trying to get breast-feeding What should I watch for while using this medicine? Tell your doctor or health pediatric critical care nurse if your pain does not go away, if it gets worse, or if you have new or a different type of pain. You may develop tolerance to the medicine. Tolerance means that you will need a higher dose of the medicine for pain relief. Tolerance is normal and is expected if you take this medicine for a long time. Do not suddenly stop taking your medicine because you may develop a severe reaction. Your body becomes used to the medicine. This does NOT mean you are addicted. Addiction is a behavior related to getting and using a drug for a non-medical reason. If you have pain, you have a medical reason to take pain medicine. Your doctor will tell you how much medicine to take. If your doctor wants you to stop the medicine, the dose will be slowly lowered over time to avoid any side effects. You may get drowsy or dizzy. Do not drive, use machinery, or do anything that needs mental alertness until you know how this medicine affects you. Do not stand or sit up quickly, especially if you are an older patient. This reduces the risk of dizzy or fainting spells. Alcohol can increase or decrease the effects of this medicine. Avoid alcoholic drinks. You may have constipation. Try to have a bowel movement at least every 2 to 3 days. If you do not have a bowel movement for 3 days, call your doctor or health pediatric critical care nurse. Your mouth may get dry. Chewing sugarless gum or sucking hard candy, and drinking plenty of water may help. Contact your doctor if the problem does not go away or is severe. Clindamycin Hydrochloride Oral capsule What is this medicine? CLINDAMYCIN (EDILSON Chacon) is a lincosamide antibiotic. It is used to treat certain kinds of bacterial infections. It will not work for colds, flu, or other viral infections. How should I use this medicine? Take this medicine by mouth with a full glass of water. Follow the directions on the prescription label. You can take this medicine with food or on an empty stomach. If the medicine upsets your stomach, take it with food. Take your medicine at regular intervals. Do not take your medicine more often than directed. Take all of your medicine as directed even if you think your are better. Do not skip doses or stop your medicine early. Talk to your timers inspector regarding the use of this medicine in children. Special care may be needed. What side effects may I notice from receiving this medicine? Side effects that you should report to your doctor or health pediatric critical care nurse as soon as possible: allergic reactions like skin rash, itching or hives, swelling of the face, lips, or tongue dark urine pain on swallowing redness, blistering, peeling or loosening of the skin, including inside the mouth unusual bleeding or bruising unusually weak or tired yellowing of eyes or skin Side effects that usually do not require medical attention (report to your doctor or health pediatric critical care nurse if they continue or are bothersome): diarrhea itching in the rectal or genital area joint pain nausea, vomiting stomach pain What may interact with this medicine? chloramphenicol erythromycin kaolin products What if I miss a dose? If you miss a dose, take it as soon as you can. If it is almost time for your next dose, take only that dose. Do not take double or extra doses. Where should I keep my medicine? Keep out of the reach of children. Store at room temperature between 20 and 25 degrees C (68 and 77 degrees F). Throw away any unused medicine after the expiration date. What should I tell my health care provider before I take this medicine? They need to know if you have any of these conditions: kidney disease liver disease stomach problems like colitis an unusual or allergic reaction to clindamycin, lincomycin, or other medicines, foods, dyes like tartrazine or preservatives or trying to get breast-feeding What should I watch for while using this medicine? Tell your doctor or healthcare professional if your symptoms do not start to get better or if they get worse. Do not treat diarrhea with over the counter products. Contact your doctor if you have diarrhea that lasts more than 2 days or if it is severe and watery. You have been given the following additional information: Cellulitis Crutch Walking Tramadol Hydrochloride Oral tablet Clindamycin Hydrochloride Oral capsule No driving or operating machinery while taking medication. You may walk and bear weight as tolerated. (Electronically signed by Kendall Fernandez MD 10/15/2016 21:10)
== END 2016-10-11 14:35 | disposition home or self-care (01) ==
LOC: ED SRH 09:43
DX: L03.116 Cellulitis of left lower limb (principal); X50.0XXA Overexertion from strenuous movement or load, initial encounter; Y93.9 Activity, unspecified; Y92.9 Unspecified place or not applicable; Y99.9 Unspecified external cause status; I10 Essential (primary) hypertension; F17.210 Nicotine dependence, cigarettes, uncomplicated; Z79.899 Other long term (current) drug therapy; Z88.5 Allergy status to narcotic agent; Z79.82 Long term (current) use of aspirin